=== PATIENT | male | born 1955 | race Caucasian/White ===

== ENCOUNTER 2018-05-24 09:13 | Outpatient (CLI) | payer MEDICARE, BC | END 2018-05-24 09:14 | disposition home or self-care (01) | LOC: DI 09:13 | PROVIDERS: ATTEND Nurse Practitioner | DX: I10 Essential (primary) hypertension (principal); I49.1 Atrial premature depolarization; E78.5 Hyperlipidemia, unspecified | CPT/HCPCS: 93306 ==

== ENCOUNTER 2018-06-03 07:46 | Outpatient (CLI) | payer MEDICARE, BC ==
--- NOTE | 2018-06-03 11:01 | CARDIAC PROCEDURE NOTE ---
DATE OF SERVICE: 06/03/2018 Physician: Nicolle Mendosa MD, [facility] INDICATIONS: PAC's, hypertension. CARDIAC RISK FACTORS: Male gender, hypertension, hyperlipidemia. PROCEDURE: After signing informed consent, the patient underwent a Antoine-protocol treadmill stress test. RESTING HEART RATE: 63. PEAK HEART RATE: 138 (87% predicted maximum heart rate for age). RESTING BLOOD PRESSURE 132/82. PEAK BLOOD PRESSURE: 182/80. The patient exercised for 7 minutes and 47 seconds on a Antoine protocol treadmill stress test. He achieved a peak heart rate of 138 (87% PMHR), and 9.8 METS. There was normal heart rate and blood pressure response to exercise. The patient had mild shortness of breath, no chest pain. RESTING EKG: Normal sinus rhythm, borderline voltage for LVH. EKG AT PEAK: Nonspecific scooping ST segments, nonspecific for ischemia. SUMMARY 1. Good exercise tolerance. 2. No ischemic changes by EKG criteria on this treadmill stress test. 3. No cardiac imaging was ordered with this test. cc: CLARISA Diaz TD: 06/03/2018 09:36 [email or web address]
== END 2018-06-03 07:47 | disposition home or self-care (01) ==
LOC: DI 07:46
PROVIDERS: ATTEND Nurse Practitioner
DX: I10 Essential (primary) hypertension (principal); I49.1 Atrial premature depolarization; E78.5 Hyperlipidemia, unspecified

== ENCOUNTER 2022-11-08 09:50 | Outpatient (CLI) | payer MEDICARE, BC | END 2022-11-08 09:51 | disposition home or self-care (01) | LOC: LAB 09:50 | PROVIDERS: ATTEND Urology | DX: Z53.9 Procedure and treatment not carried out, unspecified reason (principal) | CPT/HCPCS: 84153; 84154 ==

== ENCOUNTER 2023-01-09 13:41 | Outpatient (CLI) | payer MEDICARE, BC | END 2023-01-09 13:42 | disposition home or self-care (01) | LOC: LAB 13:41 | PROVIDERS: ATTEND Family Medicine | DX: I10 Essential (primary) hypertension (principal); Z12.5 Encounter for screening for malignant neoplasm of prostate; F41.1 Generalized anxiety disorder; R97.20 Elevated prostate specific antigen [PSA]; E78.5 Hyperlipidemia, unspecified | CPT/HCPCS: 36415; G0103; 84153 ==